=== PATIENT | female | born 1955 | race Caucasian/White ===

== ENCOUNTER 2017-01-02 15:01 | Emergency (ER) | payer OTHER ==
--- NOTE | ~2017-01-02 | EKG ---
PATIENT: CAIT MAHONEY UNIT #: [id number] Ventricular Rate: 86 BPM Atrial Rate: 86 BPM P-R Interval: 136 ms QRS Duration: 80 ms Q-T Interval: 382 ms QTC Calculation(Bezet): 457 ms P [place]: 19 degrees Calculated R [place]: 72 degrees Calculated T [place]: 71 degrees Diagnosis Line: Normal sinus rhythm Diagnosis Line: Normal ECG Diagnosis Line: When compared with ECG of 04-MAY-2016 19:47, Diagnosis Line: No significant change was found Diagnosis Line: Confirmed by ROHIT STINSON MD ([id number]) on 01/02/2017 Diagnosis Line: 5:32:55 PM INTERPRETING MD: MILAD CASTREJON
--- NOTE | ~2017-01-02 | CR72 ---
[facility] A Service of [facility] RADIOLOGY TEXT RESULTS PATIENT: CAIT MAHONEY LOCATION: [facility] : 51 UNIT #: [id number] AGE: [address]: Gabi Wilkes MD SEX: F ORDER DR: [id number] [place], [place] [address] [id number] E MR#: [id number] Acc #: [id number] NAME: CAIT MAHONEY : 1955 SEX: F STUDY DATE/TIME: 01/02/2017 16:04 UNIT: [facility] ROOM: STUDY DESCRIPTION: CR Chest Single View Portable Attending Physician: Gabi Wilkes M.D. Ordering Physician: Gabi Wilkes M.D. Primary Care Physician: No Primary Care Physician MEDICAL IMAGING REPORT This report is preliminary unless electronic signature is present EXAM Portable chest 01/02/2017 COMPARISON 08/20/2016 HISTORY Shortness of breath and right-sided chest pain onset today. TECHNIQUE Single view of the chest was obtained. FINDINGS The heart and mediastinum are stable since the previous exam. There is a band of linear scarring in the right lower lung field that is unchanged. There is a healed rib fracture on the right. No new infiltrates are seen on either side. No progressive mediastinal widening is seen. No pleural fluid. IMPRESSION Right-sided healed rib fracture with scarring at the right base. No change from the previous exam. No active disease. Dictated by... Deep Wellington M.D. THIS IS AN ELECTRONICALLY VERIFIED REPORT Deep Wellington M.D. at 01/06/2017 4:32 PM YEISONF/samy TD: 01/02/2017 19:56 JOB #: [id number] [facility] A Service [facility] RADIOLOGY TEXT RESULTS PATIENT: CAIT MAHONEY LOCATION: [facility] : 53 UNIT #: [id number] AGE: [address]: Gabi Wilkes MD SEX: F ORDER DR: MEDICAL IMAGING REPORT COPY
[~2017-01-02 15:01] MED LIST: 24 HOUR ALLER15.8 ML; ACETAMINOPHEN PO; AMOXICILLIN500 M1 PO; AUGMENTIN PO; AURALGAN EAR DR14 ML OT; BACLOFEN10 MG PO; BENADRYL25 M1 PO; BUSPIRONE HCL10 M1 PO; CARAFATE1 GM PO; CELEXA20 M1 PO; CLARITIN10 M2 PO; DICLOFENAC PO; ESTRADIOL1 MG PO; FLEXERIL10 M1 PO; GABAPENTIN300 M2 PO; IBUPROFEN PO; LISINOPRIL10 MG PO; LORTAB 5/500 TA1 TA1 PO; MEDROL4 MG/DOSE- PO; MOBIC7.5 MG/5 M PO; MONTELUKAST SOD10 MG PO; MORGIDOX100 MG PO; OMEPRAZOLE20 M2 PO; PREDNISONE PO; PREDNISONE50 MG PO; PROAIR HFA8.5 GM INH; QUETIAPINE FUM100 MG PO; SERTRALINE HCL50 MG PO; SIMVASTATIN40 MG PO; SYMBICORT INH; TESSALON PERLE100 M1 DOB; VITAMIN D250000 UNIT PO; VOLTAREN75 MG PO; ZANAFLEX4 M1 PO; ZYRTEC10 M2 PO
[2017-01-02 15:36] LABS: POC - CKMB 4.5 ng/mL (0.0-7.9); POC - TROPONIN <0.05 ng/mL (<=0.05)
[2017-01-02 15:37] LABS: BASOPHIL% 0.2 % (0-2.5); EOSINOPHIL% 0.2 % (0.0-7.0); HEMATOCRIT 34.1 % (35.0-45.0); HEMOGLOBIN 11.5 gm/dL (12.0-16.0); LYMPHOCYTE% 13.6 % (17.0-45.0); MEAN CELL VOLUME 90.3 FL (83-96); MEAN CORPUSCULAR HEMOGLOBIN 30.5 PG (28-34); MEAN CORPUSCULAR HGB CONC 33.8 g/dL (30-36); MONOCYTE# 0.6 X10e3 (0-1.0); MONOCYTE% 7.9 % (3.0-12.0); NEUTROPHIL# 5.5 X10e3 (1.5-7.1); NEUTROPHIL% 78.1 % (40-75); RED BLOOD COUNT 3.77 X10e (3.90-5.30); RED CELL DISTRIBUTION WIDTH 15.7 % (11.0-15.5); WHITE BLOOD COUNT 7.1 X10e3 (4.0-10.5)
[2017-01-02 15:38] LABS: DIFF IND NO
[2017-01-02 15:39] LABS: ALBUMIN SERUM 4.5 g/dL (3.5-5.0); ALKALINE PHOSPHATASE 89 U/L (32-92); ALT (SGPT) 22 U/L (10-40); AST (SGOT) 40 U/L (10-42); BILIRUBIN, DIRECT 0.1 mg/dL (0.0-0.2); BILIRUBIN,INDIRECT 0.6 mg/dL (0.0-0.9); BILIRUBIN,TOTAL 0.7 mg/dL (0.2-2.0); BLOOD UREA NITROGEN 16 mg/dL (9-23); BUN/CREATININE RATIO 22.85; CALCIUM SERUM 9.9 mg/dL (8.4-10.2); CARBON DIOXIDE 22 mmol/L (22-31); CHLORIDE 107 mmol/L (100-111); CREATININE SERUM 0.7 mg/dL (0.6-1.4); GLOM FILT RATE Estimated ABOVE60 mL/min (>60); GLUCOSE FASTING 104 mg/dL (70-110); POTASSIUM 3.6 mmol/L (3.5-5.1); SODIUM 140 mmol/L (135-145)
[2017-01-02 16:02] LABS: PLATELET COUNT 97 X10e3 (140-420)
[2017-01-02 17:29] LABS: POC - CKMB 5.4 ng/mL (0.0-7.9); POC - TROPONIN <0.05 ng/mL (<=0.05)
== END 2017-01-02 17:38 | disposition home or self-care (01) ==
LOC: CED 15:01
PROVIDERS: Emergency Medicine; Student in an Organized Health Care Education/Training Program
DX: R06.02 Shortness of breath (principal); R05 Cough; R07.89 Other chest pain; I10 Essential (primary) hypertension; J45.909 Unspecified asthma, uncomplicated; F17.210 Nicotine dependence, cigarettes, uncomplicated; Z90.49 Acquired absence of other specified parts of digestive tract; Z90.89 Acquired absence of other organs; Z88.6 Allergy status to analgesic agent; Z91.041 Radiographic dye allergy status; Z88.8 Allergy status to other drugs, medicaments and biological substances
CPT/HCPCS: 36415; 71010; 80048; 80076; 82553; 84484; 85025; 93005; 99284

== ENCOUNTER 2017-02-14 16:24 | Emergency (ER) | payer OTHER ==
--- NOTE | ~2017-02-14 | CR117 ---
[facility] A Service of [facility] RADIOLOGY TEXT RESULTS PATIENT: CAIT MAHONEY LOCATION: [facility] : 51 UNIT #: [id number] AGE: [address]: Lima Lezama APRN SEX: F ORDER DR: [id number] [facility] [address] [place], [place] [address] [id number] E MR#: [id number] Acc #: [id number] NAME: CAIT MAHONEY : 1955 SEX: F STUDY DATE/TIME: 02/14/2017 15:56 UNIT: [facility] ROOM: STUDY DESCRIPTION: CR Finger 2 View Thumb Rt Attending Physician: Lima Lezama A.P.R.N. Referring Physician: Wilfrid Lucio M.D. Ordering Physician: Ed Jefferson Wilson M.D. Primary Care Physician: No Primary Care Physician MEDICAL IMAGING REPORT This report is preliminary unless electronic signature is present EXAM Right thumb, 3 views. DATE OF EXAM 02/14/2017 HISTORY Right thumb pain anteriorly near first metacarpal for 3 days with no known injury. FINDINGS 3 views of the right thumb demonstrate no fracture. The bones are normally mineralized. There is no soft tissue abnormality. IMPRESSION Negative right thumb. Dictated by... Henri Avila M.D. THIS IS AN ELECTRONICALLY VERIFIED REPORT Henri Avila M.D. at 02/15/2017 1:12 PM MARGARET/christine TD: 02/14/2017 18:47 JOB #: [id number] MEDICAL IMAGING REPORT Page 1 of 1 COPY
== END 2017-02-14 17:14 | disposition home or self-care (01) ==
LOC: CFTX 16:24
DX: M79.644 Pain in right finger(s) (principal); J45.909 Unspecified asthma, uncomplicated; F31.9 Bipolar disorder, unspecified; F17.210 Nicotine dependence, cigarettes, uncomplicated; Z90.49 Acquired absence of other specified parts of digestive tract; Z90.89 Acquired absence of other organs; Z88.5 Allergy status to narcotic agent; Z88.2 Allergy status to sulfonamides; Z88.8 Allergy status to other drugs, medicaments and biological substances
CPT/HCPCS: 29125; 73140; 99283

== ENCOUNTER 2017-03-24 19:33 | Emergency (ER) | payer OTHER | END 2017-03-24 20:23 | disposition home or self-care (01) | LOC: CFTX 19:33 → CED 19:33 → CFTX 20:19 | DX: L03.116 Cellulitis of left lower limb (principal); I10 Essential (primary) hypertension; F17.210 Nicotine dependence, cigarettes, uncomplicated; J45.909 Unspecified asthma, uncomplicated; Z90.49 Acquired absence of other specified parts of digestive tract; Z90.710 Acquired absence of both cervix and uterus; Z88.8 Allergy status to other drugs, medicaments and biological substances; Z88.2 Allergy status to sulfonamides; Z91.041 Radiographic dye allergy status | CPT/HCPCS: 99282 ==

== ENCOUNTER 2017-03-31 01:59 | Emergency (ER) | payer OTHER ==
--- NOTE | ~2017-03-31 | CR127 ---
[facility] A Service of [facility] RADIOLOGY TEXT RESULTS PATIENT: CAIT MAHONEY LOCATION: [facility] : 53 UNIT #: [id number] AGE: [address]: Antony Goldman SEX: F ORDER DR: [id number] [address] [address] [id number] E MR#: [id number] Acc #: [id number] NAME: CAIT MAHONEY : 1955 SEX: F STUDY DATE/TIME: 03/31/2017 3:06 UNIT: [facility] ROOM: STUDY DESCRIPTION: CR Foot Complete Min 3 View Rt Attending Physician: Antony Goldman Ordering Physician: Antony Goldman Primary Care Physician: Primary Care Physician No MEDICAL IMAGING REPORT This report is preliminary unless electronic signature is present EXAM Right foot pain INDICATION Swelling over the dorsum of the foot. FINDINGS 3 views of the right foot without comparison. There is no acute fracture or dislocation. Alignment is anatomic. No foreign body. IMPRESSION No acute findings. Dictated by... Yo Alcantar M.D. THIS IS AN ELECTRONICALLY VERIFIED REPORT Yo Alcantar M.D. at 03/31/2017 9:07 PM Peg TD: 03/31/2017 05:19 JOB #: [id number] MEDICAL IMAGING REPORT Page 1 of 1 COPY
== END 2017-03-31 04:12 | disposition home or self-care (01) ==
LOC: CED 01:59
DX: S93.601A Unspecified sprain of right foot, initial encounter (principal); X58.XXXA Exposure to other specified factors, initial encounter; F17.210 Nicotine dependence, cigarettes, uncomplicated; I10 Essential (primary) hypertension; K57.92 Diverticulitis of intestine, part unspecified, without perforation or abscess without bleeding; J45.909 Unspecified asthma, uncomplicated; F31.9 Bipolar disorder, unspecified; F41.9 Anxiety disorder, unspecified; Z98.890 Other specified postprocedural states; Z88.5 Allergy status to narcotic agent; Z88.6 Allergy status to analgesic agent; Z79.899 Other long term (current) drug therapy; Z88.8 Allergy status to other drugs, medicaments and biological substances; Z88.2 Allergy status to sulfonamides; Z91.041 Radiographic dye allergy status
CPT/HCPCS: 29540; 73630; 99283

== ENCOUNTER 2017-05-14 16:21 | Emergency (ER) | payer OTHER | END 2017-05-14 19:43 | disposition left against medical advice (07) | LOC: CED 16:21 | DX: Z53.21 Procedure and treatment not carried out due to patient leaving prior to being seen by health care provider (principal) ==

== ENCOUNTER 2017-06-05 13:22 | Emergency (ER) | payer OTHER ==
[~2017-06-05] VITALS: Ht 157.5 cm; Wt 59.0 kg
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
== END 2017-06-05 17:03 | disposition home or self-care (01) ==
LOC: CED 13:22 → CFTX 13:22
DX: S60.221A Contusion of right hand, initial encounter (principal); I10 Essential (primary) hypertension; J44.9 Chronic obstructive pulmonary disease, unspecified; F17.210 Nicotine dependence, cigarettes, uncomplicated; W22.8XXA Striking against or struck by other objects, initial encounter; Y92.009 Unspecified place in unspecified non-institutional (private) residence as the place of occurrence of the external cause
CPT/HCPCS: 29280; 73110; 73130; 99283

== ENCOUNTER 2017-07-01 12:46 | Emergency (ER) | payer MEDICARE ==
[~2017-07-01] VITALS: Ht 157.5 cm; Wt 54.4 kg
[~2017-07-01 12:46] MED LIST changes: -BUSPIRONE HCL10 MG PO; -FLONASE ALLERG9.9 ML; -SEROQUEL100 MG PO; -SINGULAIR PO; -ZYRTEC10 M1 PO
== END 2017-07-01 15:38 | disposition home or self-care (01) ==
LOC: CED 12:46 → CFTX 12:46
DX: J20.9 Acute bronchitis, unspecified (principal); J01.00 Acute maxillary sinusitis, unspecified; I10 Essential (primary) hypertension; Z90.710 Acquired absence of both cervix and uterus; Z90.49 Acquired absence of other specified parts of digestive tract; J45.909 Unspecified asthma, uncomplicated; F41.9 Anxiety disorder, unspecified; F17.210 Nicotine dependence, cigarettes, uncomplicated; Z88.2 Allergy status to sulfonamides; Z88.8 Allergy status to other drugs, medicaments and biological substances; Z91.041 Radiographic dye allergy status; Z88.1 Allergy status to other antibiotic agents
CPT/HCPCS: 94640; 99284

== ENCOUNTER → 2017-07-01 | Outpatient (CLI) | payer MEDICARE ==
[~2017-07-01] MED LIST changes: +BUSPIRONE HCL10 MG PO; +FLONASE ALLERG9.9 ML; +SEROQUEL100 MG PO; +SINGULAIR PO; +ZYRTEC10 M1 PO
--- NOTE | ~2017-07-01 | CR233 ---
[facility] A Service of [facility] RADIOLOGY TEXT RESULTS PATIENT: CAIT MAHONEY LOCATION: [facility] : 53 UNIT #: [id number] AGE: [address]: Latosha Olsen MD SEX: F ORDER DR: [id number] [facility] [address] [place], [place] [address] [id number] O MR#: [id number] Acc #: [id number] NAME: CAIT MAHONEY : 1955 SEX: F STUDY DATE/TIME: 07/01/2017 12:16 UNIT: [facility] ROOM: STUDY DESCRIPTION: CR Sinuses Paranasal Min 3 Vws Attending Physician: Latosha Olsen M.D. Referring Physician: Latosha Olsen M.D. Ordering Physician: Latosha Olsen M.D. Primary Care Physician: Latosha Olsen M.D. MEDICAL IMAGING REPORT This report is preliminary unless electronic signature is present EXAM Paranasal sinuses HISTORY Chronic sinus infection. TECHNIQUE 3 views of the sinuses were obtained. FINDINGS Mild mucosal thickening is seen in the right maxillary sinus and the ethmoid air cells bilaterally. No sinus air-fluid levels are seen. No evidence of fracture or bone destruction. The septum is midline. 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 Dictated by... Deep Wellington M.D. THIS IS AN ELECTRONICALLY VERIFIED REPORT Deep Wellington M.D. at 07/02/2017 4:54 PM RLF/pcl TD: 07/02/2017 15:08 JOB #: [id number] MEDICAL IMAGING REPORT Page 1 of 1 COPY
== END | disposition home or self-care (01) ==
LOC: CRAD 11:40
DX: J32.9 Chronic sinusitis, unspecified (principal); J32.8 Other chronic sinusitis
CPT/HCPCS: 70220

== ENCOUNTER 2017-07-17 19:09 | Emergency (ER) | payer MEDICARE ==
[~2017-07-17] VITALS: Ht 160 cm; Wt 54.4 kg
--- NOTE | ~2017-07-17 | CR58 ---
[facility] A Service of [facility] RADIOLOGY TEXT RESULTS PATIENT: CAIT MAHONEY LOCATION: [facility] : 53 UNIT #: [id number] AGE: [address]: Yisel Ulloa SEX: F ORDER DR: [id number] [facility] [place], [place] [address] [id number] E MR#: [id number] Acc #: [id number] NAME: CAIT MAHONEY : 1955 SEX: F STUDY DATE/TIME: 07/17/2017 20:28 UNIT: [facility] ROOM: STUDY DESCRIPTION: CR Cervical Spine 2 or 3 Views Attending Physician: Yisel Ulloa Pa-C Ordering Physician: Yisel Ulloa Pa-C Primary Care Physician: Latosha Olsen M.D. MEDICAL IMAGING REPORT This report is preliminary unless electronic signature is present EXAM Cervical spine, three view series. INDICATIONS Neck pain and left arm and left shoulder pain. Symptoms started today. Previous cervical spine surgery. COMPARISON 09/09/2014 FINDINGS AP, lateral and odontoid views of the cervical spine were obtained. The patient has undergone anterior fusion at C3-4 and C6-7 which appear unchanged from the prior study. The alignment is normal. There is no fracture identified. IMPRESSION Stable prior anterior fusion at C3-4 and C6-7. No evidence of subluxation or acute abnormality. Dictated by... Montez Peralta M.D. THIS IS AN ELECTRONICALLY VERIFIED REPORT Montez Peralta M.D. at 07/18/2017 7:58 PM KODAK/christine TD: 07/18/2017 17:57 JOB #: [id number] MEDICAL IMAGING REPORT [facility] A Service [facility] RADIOLOGY TEXT RESULTS PATIENT: CAIT MAHONEY LOCATION: [facility] : 53 UNIT #: [id number] AGE: [address]: Yisel Ulloa SEX: F ORDER DR: Page 1 of 1 COPY
[2017-07-17] MEDS ORDERED: ZYRTEC10 M1 PO (19:49)
[2017-07-17] MEDS ORDERED: BUSPIRONE HCL10 MG PO (19:49)
[2017-07-17] MEDS ORDERED: FLONASE ALLERG9.9 ML (19:51)
[2017-07-17] MEDS ORDERED: CARAFATE1 GM PO (19:53)
[2017-07-17] MEDS ORDERED: SINGULAIR PO (19:53)
[2017-07-17] MEDS ORDERED: SEROQUEL100 MG PO (19:56)
== END 2017-07-17 21:30 | disposition home or self-care (01) ==
LOC: CED 19:09 → CFTX 19:09
DX: S16.1XXA Strain of muscle, fascia and tendon at neck level, initial encounter (principal); J45.909 Unspecified asthma, uncomplicated; F17.210 Nicotine dependence, cigarettes, uncomplicated; Z90.710 Acquired absence of both cervix and uterus; Z90.49 Acquired absence of other specified parts of digestive tract; Z88.6 Allergy status to analgesic agent; Z88.2 Allergy status to sulfonamides; Z88.5 Allergy status to narcotic agent; Z88.8 Allergy status to other drugs, medicaments and biological substances; Z79.899 Other long term (current) drug therapy; X58.XXXA Exposure to other specified factors, initial encounter
CPT/HCPCS: 72040; 99283